=== PATIENT | female | born 1945 | race Caucasian/White ===

== ENCOUNTER → 2019-11-26 | Outpatient (CLI) | payer MEDICARE | END | disposition home or self-care (01) | LOC: LABWHC1 10:27 | PROVIDERS: ATTEND Surgery Plastic and Reconstructive Surgery | DX: Z11.59 Encounter for screening for other viral diseases (principal) | CPT/HCPCS: 87635 ==

== ENCOUNTER 2019-12-02 07:23 | Day surgery (SDC) | payer MEDICARE ==
[2019-11-30 10:53] VITALS: BMI 33.9
--- NOTE | 2019-12-01 21:59 | P.GSHP ---
History of Present Illness H&P Date: 12/02/19 CHIEF COMPLAINT: Colon screen HISTORY OF PRESENT ILLNESS: The patient is a 74-year-old female who presents with history of colon adenoma. Lower endoscopy was offered for further evaluation and management. PAST MEDICAL HISTORY: Please see list. PAST SURGICAL HISTORY: Please see list. MEDICATIONS: Please see list. ALLERGIES: Please see list. SOCIAL HISTORY: No illicit drug use FAMILY HISTORY: No reports of Crohn disease or ulcerative colitis. REVIEW OF ORGAN SYSTEMS: CONSTITUTIONAL: No reports of fevers or chills. PHYSICAL EXAM: VITAL SIGNS: Stable GENERAL: Well-developed pleasant in no acute distress. HEENT: No scleral icterus. Extraocular movements grossly intact. Moist buccal mucosa. NECK: Supple without lymphadenopathy. CHEST: Unlabored respirations. Equal bilateral excursions. CARDIOVASCULAR: Regular rate and rhythm. Distal 2+ pulses. ABDOMEN: Soft, nontender, nondistended. MUSCULOSKELETAL: No clubbing, cyanosis, or edema. ASSESSMENT: 1. Colon polyps PLAN: 1. Recommend proceeding with a lower endoscopy Past Medical History Past Medical History: Hypertension Additional Past Medical History / Comment(s): HX HTN (NO CURRENT RX), HX COLON POLYPS. History of Any Multi-Drug Resistant Organisms: None Reported Past Surgical History: Appendectomy, Back Surgery, Hysterectomy, Joint Replacement Additional Past Surgical History / Comment(s): TOTAL RIGHT KNEE (2009), BACK SURGERY (2010) Past Anesthesia/Blood Transfusion Reactions: No Reported Reaction Past Psychological History: No Psychological Hx Reported Smoking Status: Never smoker Past Alcohol Use History: None Reported Past Drug Use History: None Reported - Past Family History Mother Family Medical History: Diabetes Mellitus Medications and Allergies Home Medications Medication Instructions Recorded Confirmed Type Amoxicillin 2,000 mg PO ONETIME PRN 11/30/19 11/30/19 History Ascorbic Acid [Vitamin C] 1,000 mg PO DAILY 11/30/19 11/30/19 History Cholecalciferol [Vitamin D3 (25 1,000 unit PO DAILY 11/30/19 11/30/19 History Mcg = 1000 Iu)] Allergies Allergy/AdvReac Type Severity Reaction Status Date / Time clarithromycin [From Biaxin] Allergy Rash/Hives Verified 11/30/19 10:28 erythromycin base Allergy Rash/Hives Verified 11/30/19 10:28 [Erythromycin Base]
[~2019-12-02 07:23] MED LIST: LACTATED RINGERS 1,000 ML IV SCH; LIDOCAINE 1% (10MG/ML) FOR IV START INTRADERMA PRN
[2019-12-02 08:05] VITALS: RESP 16; TEMP 97.2
[2019-12-02] MEDS ORDERED: PROPOFOL 10 MG/ML 20 ML VIAL IV ONE (08:10)
--- NOTE | 2019-12-02 08:24 | P.HPADDEND ---
H&P Addendum H&P Addendum Date: 12/02/19 Patient reports last colonoscopy February 2016 with multiple polyps at least 3 times. Son also has history of polyps. We'll proceed with colonoscopy possible polypectomy.
--- NOTE | 2019-12-02 08:52 | P.PCN ---
Date of Procedure: 12/02/19 Description of Procedure: PREOPERATIVE DIAGNOSIS: Personal history of colon polyps Family history of colon polyps POSTOPERATIVE DIAGNOSIS: Personal history of colon polyps Family history of colon polyps Tubular adenoma hepatic flexure Tubular adenoma transverse colon Tubular adenoma ascending colon Sigmoid diverticulosis, moderate to severe Internal hemorrhoids, grade 3 OPERATION: Colonoscopy to the ileocecal valve and appendiceal orifice. Colonoscopy with multiple hot snare polypectomies Colonoscopy with cold forceps biopsies SURGEON: Traci Mclean MD. ANESTHESIA: MAC. INDICATIONS: The patient is an 74-year-old male who presents family history of colon polyps and personal history of colon polyps. Last colonoscopy 4 years, 2015. Benefits and risks were described and informed consent was obtained. DESCRIPTION OF PROCEDURE: The patient had undergone Suprep. She had been brought into the operating room and laid in the left lateral decubitus position. After adequate intravenous sedation, the rectum was examined with 2% lidocaine jelly. External hemorrhoids were encountered. The rectal tone was loose. No lesions were palpated in the rectal vault. An Olympus colonoscope was advanced until the ileocecal valve and appendiceal orifice were clearly viewed. The prep was excellent. Sigmoid diverticulosis, moderate to severe, was encountered. Multiple colonic polyps were found and snare polypectomy. No evidence of focal colitis was found. Retroflexion of the scope demonstrated grade 3 internal hemorrhoids without active bleeding or inflammation. The colon was desufflated. The patient had tolerated the procedure well. Withdrawal time was over 6 minutes. FINDINGS: Aronchick preparation quality scale 1 (1-5) Internal hemorrhoids, grade 3 External hemorrhoids, grade 3. No arteriovenous malformations. Sigmoid diverticulosis, moderate to severe, with redundant sigmoid colon Removal of 4 polyps: - Snare polypectomy at hepatic flexure, 5 mm tubulovillous adenoma polyp. - Snare polypectomy at ascending, 8 mm tubulovillous adenoma polyp. - Cold forceps biopsy at proximal transverse colon, 4 mm polyp. - Cold forceps biopsy at mid transverse colon, 4 mm polyp. No focal colitis. RECOMMENDATIONS: Repeat colonoscopy 3 years, 2022 Plan - Discharge Summary New Discharge Prescriptions: No Action Amoxicillin 2,000 mg PO ONETIME PRN PRN Reason: PRIOR TO DENTAL PROCEDURES. Cholecalciferol [Vitamin D3 (25 Mcg = 1000 Iu)] 1,000 unit PO DAILY Ascorbic Acid [Vitamin C] 1,000 mg PO DAILY Discharge Medication List Amoxicillin 2,000 mg PO ONETIME PRN 11/30/19 [History] Ascorbic Acid [Vitamin C] 1,000 mg PO DAILY 11/30/19 [History] Cholecalciferol [Vitamin D3 (25 Mcg = 1000 Iu)] 1,000 unit PO DAILY 11/30/19 [History] Follow up Appointment(s)/Referral(s): Traci Mclean MD [STAFF PHYSICIAN] - As Needed Patient Instructions/Handouts: Diverticulosis (DC), Colorectal Polyps (DC), Diverticulosis Diet (GEN) Activity/Diet/Wound Care/Special Instructions: Repeat colonoscopy in 3 years, 2022 Discharge Disposition: HOME SELF-CARE
[2019-12-02 09:34] VITALS: BP 173/77; PULSE 84
== END 2019-12-02 09:45 | disposition home or self-care (01) ==
LOC: ORWHC2ENDO 07:23
PROVIDERS: ATTEND Surgery Plastic and Reconstructive Surgery
DX: Z12.11 Encounter for screening for malignant neoplasm of colon (principal); D12.3 Benign neoplasm of transverse colon; K63.5 Polyp of colon; K57.30 Diverticulosis of large intestine without perforation or abscess without bleeding; K64.4 Residual hemorrhoidal skin tags; K64.2 Third degree hemorrhoids; I10 Essential (primary) hypertension; Z86.010 Personal history of colon polyps; Z83.71 Family history of colonic polyps; Z88.1 Allergy status to other antibiotic agents; Z90.710 Acquired absence of both cervix and uterus; Z90.49 Acquired absence of other specified parts of digestive tract; Z96.651 Presence of right artificial knee joint; Z83.3 Family history of diabetes mellitus
CPT/HCPCS: 88305; 45380; 45385; J2704

== ENCOUNTER → 2022-12-05 | Outpatient (CLI) | payer MEDICARE ==
--- NOTE | 2022-12-05 11:44 | BD ---
EXAMINATION TYPE: Axial Bone Density DATE OF EXAM: 12/05/2022 CLINICAL HISTORY: 77 years old Female. ICD-10 CODE: Z78.0 MENOPAUSAL STATE Height: 63.5 Weight: 200 FRAX RISK QUESTIONS: nothing to note here RISK FACTORS HISTORY OF: Surgery to Spine for pinched nerve by ruptured disc, 2009 Family History of Osteoporosis: possibly great grandmother Postmenopausal woman: yes, at about 48 hormonally, partial hyst at age 31 Lost more than 2 inches in height since high school: possibly Hyperparathyroidism: no Adrenal Insufficiency: no MEDICATIONS: Additional Medications: bp meds, reflux meds, vit d, multivitamin, Additional History: rt total knee replacement, osteoarthritis, EXAM MEASUREMENTS: Bone mineral densitometry was performed using the [employer]. Bone mineral density as measured about the Lumbar spine is: ----- L1-L4(G/cm2): 1.320 T Score Values are as follows: ----- L1: 0.6 ----- L2: 1.0 ----- L3: 1.8 ----- L4: 1.0 ----- L1-L4: 1.2 Z Score Values are as follows: ----- L1: 1.5 ----- L2: 2.0 ----- L3: 2.7 ----- L4: 2.0 ----- L1-L4: 2.1 Bone mineral density this is her first bone density at [facility]. Bone mineral density about the R hip (g/cm2): 0.974 Bone mineral density about the L hip (g/cm2): 0.944 T Score values are as follows: -----R Neck: -0.9 -----L Neck: -1.1 -----R Total: -0.3 -----L Total: -0.5 Z Score values are as follows: -----R Neck: 0.7 -----L Neck: 0.2 -----R Total: 1.1 -----L Total: 0.8 Bone mineral density first dexa study at [facility]. FRAX%s: The graph provided illustrates a 11.5% chance for a major osteoporotic fx and a 2.4% chance f or the hips probability for fx in 10 years time. IMPRESSION: Osteopenia (T Score between -2.5 and -1). There is slightly increased risk of fracture and the patient may be considered for treatment. Re-Screen 2-5 years. NOTE: T-SCORE=SD OF THE YOUNG ADULT MEAN.
--- NOTE | 2022-12-06 06:45 | MM ---
Reason for Exam: Screening (asymptomatic). Last mammogram was performed 1 year(s) and 1 month(s) ago. Patient History: Menarche at age 10. First Full-Term at age 22. Hysterectomy at age 31. Postmenopausal. Paternal aunt had breast cancer. Risk Values: Bee 5 year model risk: 1.5%. NCI Lifetime model risk: 2.5%. Prior Study Comparison: 03/14/1998 Screening Mammogram, [facility]. 01/31/2006 Bilateral Screening Mammogram, [facility]. 02/24/2006 Left Diagnostic Mammogram, [facility]. 11/18/2019 Right MG diagnostic mammo RT w CAD - 2, [facility]. 11/14/2020 Bilateral MG screening mammo w CAD - 2, [facility]. 11/20/2021 Bilateral MG screening mammo w CAD - 2, [facility]. Tissue Density: The breast tissue is heterogeneously dense. This may lower the sensitivity of mammography. Findings: Analyzed By CAD. There are benign-appearing rounded along with linear and vascular calcifications bilaterally redemonstrated. There is no suspicious new group of microcalcifications or new suspicious mass in either breast. Overall Assessment: Benign, BI-RAD 2 Management: Screening Mammogram of both breasts in 1 year. . Patient should continue monthly self-breast exams. A clinical breast exam by your physician is recommended on an annual basis. This exam should not preclude additional follow-up of suspicious palpable abnormalities. Note on Bee scores and lifetime risk: 1. A Bee score greater than 3% is considered moderate risk. If this is the case, consider specialist referral to assess eligibility for a risk reducing agent. 2. If overall lifetime risk for the development of breast cancer is 20% or higher, the patient may qualify for future screening with alternating mammogram and breast MRI. Electronically signed and approved by: Mason Wilkerson M.D.
== END | disposition home or self-care (01) ==
LOC: RADMAMWWP 09:15
PROVIDERS: ATTEND Family Medicine
DX: Z12.31 Encounter for screening mammogram for malignant neoplasm of breast (principal); M85.852 Other specified disorders of bone density and structure, left thigh; Z78.0 Asymptomatic menopausal state; Z80.3 Family history of malignant neoplasm of breast
CPT/HCPCS: 77063; 77067; 77080

== ENCOUNTER 2022-12-19 09:13 | Day surgery (SDC) | payer MEDICARE, OTHER ==
[2022-12-17 15:50] VITALS: BMI 32.5
--- NOTE | 2022-12-19 07:58 | P.GSHP ---
History of Present Illness H&P Date: 12/19/22 CHIEF COMPLAINT: Colon screen HISTORY OF PRESENT ILLNESS: The patient is a 77-year-old female who presents for colon screen. Lower endoscopy was offered for further evaluation and management. PAST MEDICAL HISTORY: Please see list. PAST SURGICAL HISTORY: Please see list. MEDICATIONS: Please see list. ALLERGIES: Please see list. SOCIAL HISTORY: No illicit drug use FAMILY HISTORY: No reports of Crohn disease or ulcerative colitis. REVIEW OF ORGAN SYSTEMS: CONSTITUTIONAL: No reports of fevers or chills. PHYSICAL EXAM: VITAL SIGNS: Stable GENERAL: Well-developed pleasant in no acute distress. HEENT: No scleral icterus. Extraocular movements grossly intact. Moist buccal mucosa. NECK: Supple without lymphadenopathy. CHEST: Unlabored respirations. Equal bilateral excursions. CARDIOVASCULAR: Regular rate and rhythm. Distal 2+ pulses. ABDOMEN: Soft, nontender, nondistended. MUSCULOSKELETAL: No clubbing, cyanosis, or edema. ASSESSMENT: 1. Colon screen. PLAN: 1. Recommend proceeding with a lower endoscopy Past Medical History Past Medical History: Hypertension, Pneumonia Additional Past Medical History / Comment(s): no longer needs b/p medication,hx colon polyps,bleeding ulcers 1988 History of Any Multi-Drug Resistant Organisms: None Reported Past Surgical History: Appendectomy, Back Surgery, Hysterectomy, Joint Replacement, Orthopedic Surgery Additional Past Surgical History / Comment(s): colonoscopies,rt knee replacement Past Anesthesia/Blood Transfusion Reactions: No Reported Reaction Additional Past Anesthesia/Blood Transfusion Reaction / Comment(s): no problems with blood transfusion 1988 Smoking Status: Never smoker - Past Family History Mother Family Medical History: Diabetes Mellitus Father Family Medical History: Myocardial Infarction (NH) Sister(s) Additional Family Medical History / Comment(s): at age 82, bronchiectasis Medications and Allergies Home Medications Medication Instructions Recorded Confirmed Type Amoxicillin 2,000 mg PO ONETIME PRN 11/30/19 12/17/22 History Ascorbic Acid [Vitamin C] 1,000 mg PO DAILY 11/30/19 12/17/22 History Cholecalciferol [Vitamin D3 (25 25 mcg PO DAILY 11/30/19 12/17/22 History Mcg = 1000 Iu)] Allergies Allergy/AdvReac Type Severity Reaction Status Date / Time clarithromycin [From Biaxin] Allergy Rash/Hives Verified 12/17/22 15:34 erythromycin base Allergy Rash/Hives Verified 12/17/22 15:34 [Erythromycin Base]
[~2022-12-19 09:13] MED LIST changes: -LIDOCAINE 1% (10MG/ML) FOR IV START INTRADERMA PRN
[2022-12-19 09:38] VITALS: TEMP 97
[2022-12-19] MEDS ORDERED: LIDOCAINE 2% INJ 20 MG/ML (2 ML VIAL) ONE (09:50)
[2022-12-19] MEDS ORDERED: PROPOFOL 10 MG/ML 20 ML VIAL IV ONE (09:50)
--- NOTE | 2022-12-19 10:15 | P.PCN ---
Date of Procedure: 12/19/22 Description of Procedure: PREOPERATIVE DIAGNOSIS: Colonoscopy screening. Personal history colon polyps POSTOPERATIVE DIAGNOSIS: Colonoscopy screening. Personal history colon polyps Severe sigmoid diverticulosis OPERATION: Colonoscopy to the cecum, ileocecal valve and appendiceal orifice. SURGEON: Traci Mclean MD. ANESTHESIA: MAC. INDICATIONS: The patient is a 77-year-old female who presents for colonoscopy screening. Last colonoscopy 5 years ago Benefits and risks were described and informed consent was obtained. DESCRIPTION OF PROCEDURE: The patient had undergone Golytely prep. The patient had been brought into the operating room and laid in the left lateral decubitus position. After adequate intravenous sedation, the rectum was examined with 2% lidocaine jelly. External hemorrhoids were encountered. The rectal tone was within normal limits. No lesions were palpated in the rectal vault. An Olympus colonoscope was advanced until the cecum, ileocecal valve and appendiceal orifice were clearly viewed. The prep was excellent. Scattered diverticulosis was encountered. No colonic polyps were found. No evidence of focal colitis was found. Retroflexion of the scope demonstrated grade 2 internal hemorrhoids without active bleeding or inflammation. The colon was desufflated. The patient had tolerated the procedure well. Withdrawal time was over 6 minutes. FINDINGS: Aronchick preparation quality scale 1 (1-5) Internal hemorrhoids, grade 2 External prolapsed hemorrhoids, grade 3 No arteriovenous malformations. No adenomatous polyps. No focal colitis. Severe sigmoid diverticulosis Redundant sigmoid colon requiring abdominal pressure RECOMMENDATIONS: Lower endoscopy in 5 years, 2027 Plan - Discharge Summary Discharge Rx Participant: No New Discharge Prescriptions: Continue Amoxicillin 2,000 mg PO ONETIME PRN PRN Reason: PRIOR TO DENTAL PROCEDURES. Cholecalciferol [Vitamin D3 (25 Mcg = 1000 Iu)] 25 mcg PO DAILY Ascorbic Acid [Vitamin C] 1,000 mg PO DAILY Discharge Medication List Amoxicillin 2,000 mg PO ONETIME PRN 11/30/19 [History] Ascorbic Acid [Vitamin C] 1,000 mg PO DAILY 11/30/19 [History] Cholecalciferol [Vitamin D3 (25 Mcg = 1000 Iu)] 25 mcg PO DAILY 11/30/19 [History] Follow up Appointment(s)/Referral(s): Traci Mclean MD [STAFF PHYSICIAN] - As Needed Patient Instructions/Handouts: *Surgery [facility] - (Anesthesia) Discharge Instructions Outpatient Surgery, Colonoscopy (DC) Activity/Diet/Wound Care/Special Instructions: Repeat colonoscopy in 5 years, 2027 Discharge Disposition: HOME SELF-CARE
[2022-12-19 10:34] VITALS: BP 108/55; PULSE 78; RESP 18
== END 2022-12-19 11:28 | disposition home or self-care (01) ==
LOC: ORWHC2ENDO 09:13
PROVIDERS: ATTEND Surgery Plastic and Reconstructive Surgery
DX: Z12.11 Encounter for screening for malignant neoplasm of colon (principal); K57.30 Diverticulosis of large intestine without perforation or abscess without bleeding; K64.4 Residual hemorrhoidal skin tags; K64.1 Second degree hemorrhoids; I10 Essential (primary) hypertension; Z90.49 Acquired absence of other specified parts of digestive tract; Z90.710 Acquired absence of both cervix and uterus; Z96.651 Presence of right artificial knee joint; Z83.3 Family history of diabetes mellitus; Z82.49 Family history of ischemic heart disease and other diseases of the circulatory system; Z86.010 Personal history of colon polyps; Z88.1 Allergy status to other antibiotic agents; Z79.899 Other long term (current) drug therapy
CPT/HCPCS: 45378; J2704; J2001

== ENCOUNTER → 2023-12-08 | Outpatient (CLI) | payer MEDICARE ==
--- NOTE | 2023-12-09 16:24 | MM ---
Reason for Exam: Screening (asymptomatic). Last screening mammogram was performed 12 month(s) ago. Patient History: Menarche at age 10. First Full-Term at age 22. Hysterectomy at age 31. Postmenopausal. Paternal aunt had breast cancer. Risk Values: Bee 5 year model risk: 1.5%. NCI Lifetime model risk: 2.3%. Prior Study Comparison: 11/14/2020 Bilateral MG screening mammo w CAD - 2, [facility]. 11/20/2021 Bilateral MG screening mammo w CAD - 2, [facility]. 12/05/2022 Bilateral MG 3D screening mammo w/cad, [facility]. Tissue Density: The breasts are heterogeneously dense, which may obscure small masses. Findings: Analyzed By CAD. There is no suspicious group of microcalcifications or new suspicious mass in either breast. Overall Assessment: Benign, BI-RAD 2 Management: Screening Mammogram of both breasts in 1 year. . Patient should continue monthly self-breast exams. A clinical breast exam by your physician is recommended on an annual basis. This exam should not preclude additional follow-up of suspicious palpable abnormalities. Note on Bee scores and lifetime risk: 1. A Bee score greater than 3% is considered moderate risk. If this is the case, consider specialist referral to assess eligibility for a risk reducing agent. 2. If overall lifetime risk for the development of breast cancer is 20% or higher, the patient may qualify for future screening with alternating mammogram and breast MRI. Electronically signed and approved by: Johanna Cooper M.D. Radiologist
== END | disposition home or self-care (01) ==
LOC: RADMAMWWP 13:14
PROVIDERS: ATTEND Family Medicine
DX: Z12.31 Encounter for screening mammogram for malignant neoplasm of breast (principal); Z80.3 Family history of malignant neoplasm of breast; Z78.0 Asymptomatic menopausal state
CPT/HCPCS: 77063; 77067

== ENCOUNTER → 2024-09-10 | Outpatient (CLI) | payer MEDICARE ==
[~2024-09-10] MED LIST changes: -LACTATED RINGERS 1,000 ML IV SCH; +REGADENOSON 0.4 MG/5 ML SYRINGE IV ONE
--- NOTE | 2024-09-10 10:27 | CA ---
Lexiscan Nuclear Stress Test Report Name: Gabriella Solares Exam Date: 09/10/2024 09:26 Exam Location: [place] Stress Ht (in): 66 Wt (lb): 204 BSA: 2.02 Ordering Phys: Clementina Brewster DO Referring Phys: Clementina Brewster DO Technologist: Beck Reynoso Age: 78 Gender: F : 1945 Procedure CPT: Indications: I63.9 cerebral infarction ICD-10 Codes: Patient History: Medications: elaquis, atorvastatin, lopressor, losartan Meds past 24 hrs: Pretest Chest Pain: STRESS TEST Lexiscan Protocol Exercise Duration (min:sec): 02:[address] Depressions (mm): Angina Score: Angelo Score: Resting HR (bpm): 148 Peak HR (bpm): 168 Resting BP (mmHg): 116 / 80 Peak BP (mmHg): 126 / 72 MPHR: 140 Target HR: 119 % MPHR: 120 METS: 1.0 Total Dose: Peak Dose: Atropine: Double Product: 45395 BP Response: Stress Termination: infusion complete Stress Symptoms: no symptoms Stress Summary: ECG ANALYSIS Resting ECG: Stress ECG: CONCLUSIONS Diagnosis history of CVA hypertension atrial fibrillation Patient referred for an exercise Cardiolite stress test Patient found to be in A-fib with RVR with aberrant conduction intermittently Instead Lexiscan Cardiolite stress test performed EKG shows A-fib with RVR up to 150 beats a minute with intermittent aberrancy No clear-cut evidence for ST segment abnormalities Nuclear portion will be reported separately Dr. Jayson Avila MD (Electronically Signed) Final Date: 10 September 2024 10:26
--- NOTE | 2024-09-10 14:58 | NM ---
EXAMINATION TYPE: NM stress lexiscan cardiolite DATE OF EXAM: 09/10/2024 COMPARISON: NONE CLINICAL INDICATION: Female, 78 years old with history of I63.9 CEREBRAL INFARCTION; hypercholesterem ia and family history of heart attack- TECHNIQUE: After the intravenous administration of 9.72 mCi Tc 99m Sestamibi - Cardiolite resting SP ECT images acquired 45 minutes post injection. The patient received 0.4mg Lexiscan, 26.6 mCi Tc 99m Sestamibi - Stress images obtained [address] injection FINDINGS: Review of stress and rest SPECT images demonstrates no distinct perfusion abnormality. Gated analysi s shows normal wall motion with an estimated left ventricular ejection fraction of 55 %. IMPRESSION: No scintigraphic evidence for reversible ischemia. [facility], , 09/10/2024 2:55 PM
== END | disposition home or self-care (01) ==
LOC: RADNMMAIN 07:50
PROVIDERS: ATTEND Internal Medicine
DX: I63.9 Cerebral infarction, unspecified (principal); I48.91 Unspecified atrial fibrillation
CPT/HCPCS: 93017; 78452; A9500